=== PATIENT | male | born 1980 | race Caucasian/White ===

== ENCOUNTER 2025-01-11 06:26 | Day surgery (SDC) | payer BC, SELFPAY ==
[2025-01-11 10:13] VITALS: BMI 28.0
[2025-01-11 10:14] VITALS: BMI 28.0
[2025-01-11 10:15] VITALS: BP 139/94
[2025-01-11] MEDS: TYLENOL 1000 MG PO (10:20)
[2025-01-11] MEDS: CELEBREX 200 MG PO (10:20)
[2025-01-11] MEDS: NORMOSOL-R/PLASMALYTE-A 1000 IV (10:28)
[2025-01-11 13:06] VITALS: BP 135/81; BP 139/94
[2025-01-11 13:15] VITALS: BP 136/75
[2025-01-11 13:25] VITALS: BP 145/82
[2025-01-11 13:55] VITALS: BP 138/75
[2025-01-11] MEDS: ROXICODONE 5 MG PO (13:58)
== END 2025-01-11 14:25 | disposition home or self-care (01) ==
LOC: SDS 06:26
PROVIDERS: ATTENDING PHYSICIAN Student in an Organized Health Care Education/Training Program
DX: S93.492A Sprain of other ligament of left ankle, initial encounter (principal); M25.372 Other instability, left ankle; M65.872 Other synovitis and tenosynovitis, left ankle and foot; X50.1XXA Overexertion from prolonged static or awkward postures, initial encounter
CPT/HCPCS: 27698; 29898; C1713; C1776